=== PATIENT | male | born 1970 | race Caucasian/White ===

== ENCOUNTER → 2020-08-01 | Outpatient (CLI) | payer MEDICARE, BC ==
[~2020-08-01] MED LIST: ASPIR 8181 MG PO; ATORVASTATIN CA40 MG PO; CLOPIDOGREL75 MG PO; DEXILANT60 MG PO; DICLOFENAC SOD100 MG PO; GABAPENTIN600 MG PO; HYDROCHLOROTH12.5 MG PO; IMDUR ER TAB 3030 MG PO; KEFLEX CAP 500500 MG PO; LISINOPRIL20 MG PO; METOPROLOL SUCC50 MG PO; NORCO 7.5-3251 EACH PO; PREDNISONE20 MG PO
== END ==
LOC: HEART CORB 10:00
DX: I25.10 Atherosclerotic heart disease of native coronary artery without angina pectoris (principal); R07.2 Precordial pain
CPT/HCPCS: 78452; A9502; J2785

== ENCOUNTER → 2021-05-15 | Outpatient (CLI) | payer MEDICARE, BC | LOC: KOH-I 09:43 | DX: M79.641 Pain in right hand (principal); M25.561 Pain in right knee; G89.29 Other chronic pain; M17.11 Unilateral primary osteoarthritis, right knee | CPT/HCPCS: 73120; 73562 ==